=== PATIENT | male | born 1990 | race Caucasian/White ===

== ENCOUNTER 2021-11-21 18:00 | Emergency (ER) | payer SELFPAY ==
[~2021-11-21] VITALS: Ht 188 cm; Wt 85.2 kg
[2021-11-21 18:13] VITALS: BP 118/69
[2021-11-21 18:17] VITALS: BP 113/67
[2021-11-21 18:30] VITALS: BP 114/70
[2021-11-21] MEDS ORDERED: CLINDAMYCIN HC150 MG PO (18:34)
[2021-11-21] MEDS ORDERED: NAPROXEN500 MG PO (18:34)
[2021-11-21 18:38] VITALS: BP 114/70
== END 2021-11-21 18:43 | disposition home or self-care (01) | DRG 159 ==
LOC: ED 18:00
DX: K04.7 Periapical abscess without sinus (principal)